=== PATIENT | female | born 1940 | race Caucasian/White ===

== ENCOUNTER → 2016-04-26 10:11 | Outpatient (CLI) | payer MEDICARE ==
[2015-07-12 13:38] VITALS: BMI 24.5
[~2016-04-26 10:11] MED LIST: HYDROCODON-ACE1 EAC7 PO; LEVOXYL100 MCG PO; LIPITOR80 MG PO; METFORMIN HCL500 M1 PO; MULTIPLE VITAMI1 TA1 PO; NEURONTIN 300300 MG PO; PAXIL40 MG PO; ROBAXIN500 MG PO; VITAMIN B-121000 MCG PO; VITAMIN D5000 UNIT PO
== END | disposition home or self-care (01) ==
LOC: D.CT 09:30
DX: I65.23 Occlusion and stenosis of bilateral carotid arteries (principal)

== ENCOUNTER 2016-06-22 10:36 | Outpatient (CLI) | payer MEDICARE ==
[~2016-06-22] VITALS: Ht 167.6 cm; Wt 63.6 kg
--- NOTE | ~2016-06-22 | HEMODYNAMI ---
PATIENT:OVIDIO FU MEDICAL RECORD: [id number] : 38 LOCATION:[facility] ADMISSION DATE: 06/22/16 Generatedon:06/22/201615:06 Patient name: OVIDIO FU Patient #: [id number] SSN: DO B: 1940 Date of study: 06/22/2016 Page: Of Hemodynamic Procedure Report Patient Data Patient Demographics Procedure consent was obtained First Name: OVIDIO Gender: Female Last Name: NICKIE : 1940 [facility] Initial: CHRIS Age: 75 year(s) Patient #: [id number] Race: Unknown Additional ID: [id number] Contact details [address]: [address] [place] [address] DRIVE State: [place] City: [place] Zip code: [address] Past Medical History Allergies Allergen Reaction Date Comments Reported Codeine 07/12/2015 Admission Admission Data Admission Date: 06/22/2016 Admission Time: 10:36 Procedure Procedure Types Cath Procedure Peripheral Cath Diagnostic Procedure Miscellaneous Procedure Description Procedure Date Procedure Date: 06/22/2016 Procedure Start Time: 13:51 Procedure Staff Name Function Troy Gomez MD Performing Physician Aman Humphries RT Scrub Shelbie Ward RN Nurse Aman Humphries RT Monitor Procedure Data Cath Procedure Fluoroscopy Diagnostic fluoroscopy Total fluoroscopy Time: 8.3 time: 8.3 min min Diagnostic fluoroscopy Total fluoroscopy dose: 412 dose: 412 mGy mGy Contrast Material Contrast Material Type Amount (ml) Isovue 300 62 Entry Location Entry Primary Successful Side Size Upsize Upsize Entry Closure Succ essful Closure Location (Fr) 1 (Fr) 2 (Fr) Remarks Device Remarks Femoral Right 5 Fr 6 Fr Angio-VIP artery Long 6Fr Diagnostic catheters Device Type Used For End Catheter Placement Merit Impress Parikh 5Fr 125CM catheter Merit ULTRA BOLUS FLUSH Aortic Root 5Fr 90CM catheter Angiography Procedure Medications Medication Administration Route Dosage Versed I.V. 0.5 mg Versed I.V. 0.5 mg Fentanyl I.V. 25 mcg Versed I.V. 0.5 mg Fentanyl I.V. 25 mcg Heparin Bolus I.V. 5000 units Versed I.V. 0.5 mg Fentanyl I.V. 25 mcg Versed I.V. 0.5 mg Fentanyl I.V. 25 mcg Fentanyl I.V. 25 mcg Hemodynamics Rest Heart Rate: 58 (bpm) Snapshots Pre Cath Intra NCS Post Cath Vital Signs Time Heart Resp SPO2 NIBP (mmHg) Rhythm Pain Sedation Rate (ipm) (%) Status Level (bpm) 13:43:59 62 28 98 130/63(92) NSR 0 (11) 10(A) , No pain 13:48:15 61 13 98 125/58(85) NSR 0 (11) 10(A) , No pain 13:52:29 59 16 100 136/61(107) NSR 0 (11) 10(A) , No pain 13:56:49 61 14 100 130/56(90) NSR 0 (11) 10(A) , No pain 14:01:06 60 14 100 132/55(93) NSR 0 (11) 10(A) , No pain 14:05:24 61 11 99 120/54(93) NSR 0 (11) 10(A) , No pain 14:09:28 62 21 98 118/61(97) NSR 0 (11) 10(A) , No pain 14:13:39 66 12 100 128/57(95) NSR 0 (11) 10(A) , No pain 14:17:57 66 14 100 114/47(77) NSR 0 (11) 10(A) , No pain 14:22:09 69 16 100 115/51(74) NSR 0 (11) 10(A) , No pain 14:26:21 67 12 100 118/50(74) NSR 0 (11) 10(A) , No pain 14:30:33 68 15 100 109/52(79) NSR 0 (11) 10(A) , No pain 14:34:43 69 12 100 118/50(79) NSR 0 (11) 10(A) , No pain 14:38:57 71 14 100 106/49(76) NSR 0 (11) 10(A) , No pain 14:43:09 68 13 100 119/45(76) NSR 0 (11) 10(A) , No pain 14:47:23 68 15 100 120/54(101) NSR 0 (11) 10(A) , No pain 14:51:35 77 13 100 113/59(83) NSR 0 (11) 10(A) , No pain Medications Time Medication Route Dose Verified Delivered Reason Notes Effe ctiveness by by 13:51:10 Fentanyl I.V. 25 Shelbie Shelbie for sedation mcg King SHIELA Ward RN 13:51:16 Versed I.V. 0.5 Shelbie Shelbie for sedation mg King SHIELA Ward RN 14:02:05 Versed I.V. 0.5 Shelbie Shelbie for sedation mg King SHIELA Ward RN 14:02:11 Fentanyl I.V. 25 Shelbie Shelbie for sedation mcg King SHIELA Ward RN 14:14:31 Versed I.V. 0.5 Shelbie Shelbie for sedation mg King SHIELA Ward RN 14:14:40 Fentanyl I.V. 25 Shelbie Shelbie for sedation mcg King SHIELA Ward RN 14:15:19 Heparin I.V. 5000 Shelbie Shelbie for Bolus units King SHIELA Ward RN anticoagulation 14:24:54 Versed I.V. 0.5 Shelbie Shelbie for sedation mg King SHIELA Ward RN 14:25:01 Fentanyl I.V. 25 Shelbie Shelbie for sedation mcg King SHIELA Ward RN 14:47:50 Versed I.V. 0.5 Shelbie Shelbie for sedation mg King SHIELA Ward RN 14:47:57 Fentanyl I.V. 25 Shelbie Shelbie for sedation mcg King SHIELA Ward RN Procedure Log Time Note 13:23:56 Aman Humphries RT (R) (CV) sent for patient. Start room use. 13:24:09 Time tracking: Regular hours 13:24:14 Plan of Care:Hemodynamics will remain stable., Cardiac rhythm will remain stable., Comfort level will be maintained., Respiratory function will remain adequate., Patient/ family verbilizes understanding of procedure., Procedure tolerated without complication., Recovers from procedure without complications.. 13:24:19 Patient received from Outpatients to IR Alert and oriented. Tansferred to table in Supine position. 13:24:20 Correct patient and procedure confirmed by team. 13:24:23 Signed procedure consent form obtained from patient. 13:24:24 ECG and BP/O2 sat monitors applied to patient. 13:24:25 Full Disclosure recording started :: - 13:24:30 H&P Date Dictated: 06/22/2016 H&P Addendum completed by physician on day of procedure. (MUST COMPLETE FOR ALL OUTPATIENTS). ::30 Pre-procedure instructions explained to patient. 13:24:31 Pre-op teaching completed and patient verbalized understanding. 13::32 Family in waiting room. 13::34 Patient NPO since Midnight. 13::37 Is the patient allergic to Iodine/contrast media? No. 13:24:39 Was the patient premedicated? No 13::44 Is patient on blood thinner?No 13:24:45 Patient diabetic? No. 13:24:47 - 13:24:49 ----Pre-sedation anethsthesia assessment.---- 13:24:52 Snore? Yes 13:24:53 Sleep apnea? No 13::55 Deviated septum? No :24:55 Opens mouth fully? Yes 13:24:57 Sticks out tongue? Yes 13:25:00 Airway obstruction? No ? 13:25:05 Dentures? No ? 13:28:32 Pre procedure: right dorsailis pedis pulse 2+ Normal; easily identifiable; not easily obliterated 13::37 Pre procedure: left dorsailis pedis pulse 2+ Normal; easily identifiable; not easily obliterated 13:28:41 Pre procedure: right posterior tibial pulse Doppler 13::44 Pre procedure: left posterior tibial pulse Doppler 13:28:53 Patient pain scale 0/10 no pain. 13:29:00 IV patent on arrival in right hand with 0.9% NaCl at [facility]. 13:29:02 Alarms reviewed by R. N. 13::03 Alarms reviewed by R. N. 13:: Sharps counted by scrub and verified by R.N. 13:29:07 Right groin area was prepped with chlora-prep and draped in sterile fashion 13:29:20 Use device set IR Diagnostic 13::27 Sterile Angiographic Pack opened to sterile field. 13:: Bag Decanter opened to sterile field. 13:: Acist Manifold opened to sterile field. 13:: Acist Hand Control opened to sterile field. 13:29:30 Acist Syringe opened to sterile field. 13:41:40 Vital chart was started 13:41:42 Baseline sample Acquired. 13:41:46 Rhythm: sinus bradycardia 13:50:22 Physician arrived 13:50:23 --------ALL STOP TIME OUT------ 13:50:24 Final Timeout: patient, procedure, and site verified with staff and physician. All members of the team are in agreement. 13:50:26 Right groin site verified by team. 13:50:31 Physical assessment completed. ASA score P 3 - A patient with severe systemic disease as per Troy Gomez MD. 13:50:35 Sedation plan: IV Moderate Sedation Versed, Fentanyl 13:50:57 Procedure started. 13:51:02 Local anesthetic to right femoral artery with Lidocaine 1% by Troy Gomez MD.INITIAL ACCESS ONLY 13:51:10 Fentanyl 25 mcg I.V. was given by Shelbie Ward RN; for sedation; 13:51:16 Versed 0.5 mg I.V. was given by Shelbie Ward RN; for sedation; 13:51:25 Yousuf DOC .035 guide wire opened to sterile field. 13:51:25 Cook GOLDSTEIN 260 guide wire opened to sterile field. 13:51:26 Micropuncture VSI 4FR kit opened to sterile field. 13:51:26 [facility] 5FR Sheath opened to sterile field. 13:51:27 TUBING, CONTRAST INJCTN HI PRES opened to sterile field. 13:51:27 BasixTOUCH Inflation Syringe opened to sterile field. 13:51:28 Copilot Bleedback Control Valve opened to sterile field. 13:53:53 A Merit Impress Parikh 5Fr 125CM catheter was advanced over the wire and used for . 13:54:25 A Merit ULTRA BOLUS FLUSH 5Fr 90CM catheter was advanced over the wire and used for Aortic Root Angiography. 13:54:33 Cook RAABE 6FR. 90cm guide sheath opened to sterile field. 13:54:47 A 5 Fr sheath was inserted into the Right Femoral artery 14:02:05 Versed 0.5 mg I.V. was given by Shelbie Ward RN; for sedation; 14:02:11 Fentanyl 25 mcg I.V. was given by Shelbie Ward RN; for sedation; 14:10:03 Sheath upsized to a 6 Fr Long. 14:10:29 22g iv moved to L AC d/t infiltration in R AC 14:12:07 Terumo ANGLE 180L glide wire opened to sterile field. 14:12:20 Terumo TORQUE DEVICE PLASTIC .038 opened to sterile field. 14:14:31 Versed 0.5 mg I.V. was given by Shelbie Ward RN; for sedation; 14:14:40 Fentanyl 25 mcg I.V. was given by Shelbie Ward RN; for sedation; 14:15:19 Heparin Bolus 5000 units I.V. was given by Shelbie Ward RN; for anticoagulation; 14:24:54 Versed 0.5 mg I.V. was given by Shelbie Ward RN; for sedation; 14:25:01 Fentanyl 25 mcg I.V. was given by Shelbie Ward RN; for sedation; 14:35:08 8 X 37 VISIPRO STENT DEPLOYED LOT#[id number] 14:43:36 ANGIOSEAL-VIP PLUS 6 FR opened to sterile field. 14:43:51 Sheath removed intact; hemostasis achieved with Angio-VIP 6Fr to the Right Femoral artery. 14:46:05 Procedure ended.(Physican Out) 14:47:50 Versed 0.5 mg I.V. was given by Shelbie Ward RN; for sedation; 14:47:55 Fluoroscopy time 08.30 minutes. 14:47:57 Fentanyl 25 mcg I.V. was given by Shelbie Ward RN; for sedation; 14:49:17 Fluoroscopy dose: 412 mGy 14:49:17 Flurop Dose total: 412 14:49:26 Contrast amount:Isovue 300 62ml. 14:49:28 Sharps counted by scrub and verified by R.N. 14:49:30 Insertion/operative site no bleeding no hematoma. 14:49:34 Post-op/insertion site Right Femoral artery dressed using a 4 x 4 and Tegaderm. 14:49:45 Post right femoral artery:stable 14:49:47 Post Procedure Pulses reassessed and unchanged 14:49:52 Post-procedure physical assessment completed. ASA score P 3 - A patient with severe systemic disease as per Troy Gomez MD. 14:49:54 Post procedure rhythm: unchanged. 14:49:56 Procedure and supply charges have been captured, reviewed, submitted an d are correct. 15:06:02 Report given to Outpatients. 15:06:17 Patient transfered to Outpatients with Bed. 15:06:40 Vital chart was stopped Device Usage Item Name Manufacture Quantity Catalog Number Hospital Part Current Min imal Lot# / Charge Number Stock Stock Serial# Code Sterile Cardinal 1 [id number] 5 Angiographic Health Pack Bag Decanter Microtek 1 2001S [id number] 26383 759393 5 Medical Inc. Acist Acist 1 27872 768085 184089 448966 5 Manifold Medical Systems Inc Acist Hand Acist 1 05270 825938 621767 750288 5 Control Medical Systems Inc Acist Syringe Acist 1 62974 944278 731901 657344 20 Medical Systems Inc Cook DOC .035 Cook Medical 1 L02778 615427 503008 5 [id number] guide wire Yousuf GOLDSTEIN Cook Medical 1 [id number] 184787 212187 5 [id number] 260 guide wire Micropuncture VSI VASCULAR 1 7266V 061385 201842 [address] [facility] [address] [facility] 1 999555 717573 867623 5 [id number] Sheath TUBING, Merit 1 [id number] 025411 098875 770828 5 CONTRAST Medical INJCTN HI PRES BasixTOUCH Merit 1 XQ3932 578135 479611 292949 5 Inflation Medical Syringe Copilot [place] 1 2872405 217448 786586 048004 5 Bleedback Vascular Control Valve Merit Impress Merit 1 [id number] 377764 135917 819674 5 Parikh 5Fr Medical 125CM catheter Merit ULTRA Merit 1 [id number] 416919 779068 5 BOLUS FLUSH Medical 5Fr 90CM catheter Cook RAABE Cook Medical 1 C32564 543832 765429 5 [id number] 6FR. 90cm guide sheath Terumo ANGLE Terumo 1 UG6186 104548 226327 576250 5 180L glide wire Terumo TORQUE [place] 1 TD01 551189 621605 593724 5 DEVICE Scientific PLASTIC .[address]-[facility] [facility] 1 005492 680304 177020 5 [id number] PLUS 6 FR Signature Audit [place] Stage Time Signature Unsigned Intra-Procedure 06/22/2016 Aman 3:06:37 PM [place] RT (R) (CV) Signatures Monitor : Aman Signature : [place] RT Date : Time : [id number] [place] [address]
[~2016-06-22 10:36] MED LIST changes: -MULTIPLE VITAMI1 TA1 PO; -VITAMIN B-121000 MCG PO; -VITAMIN D5000 UNIT PO
[2016-06-22] MEDS ORDERED: VITAMIN D5000 UNIT PO (11:26)
[2016-06-22] MEDS ORDERED: VITAMIN B-121000 MCG PO (11:26)
[2016-06-22] MEDS ORDERED: MULTIPLE VITAMI1 TA1 PO (11:26)
[2016-06-22 11:33] VITALS: BP 129/54; Ht 167.6 cm; Wt 63.6 kg
[2016-06-22 11:35] LABS: EOSINOPHILS 3.4 % (0-7); HEMATOCRIT 37.6 % (36.0-48.0); HEMOGLOBIN 11.5 g/dL (12-16); LYMPHOCYTES 16.3 % (15-50); MCH 24.6 pg (26.0-34.0); MCHC 30.6 g/dL (31.0-37.0); MCV 80.3 fL (80.0-100.0); MEAN PLATELET VOLUME 11.4 fL (7.4-10.4); MONOCYTES 5.6 % (2-11); NEUTROPHILS 73.7 % (40-80); PLATELET COUNT 749 10x3/uL (130-400); RBC 4.68 10x6/uL (4.00-5.40); RDW 15.8 % (11.5-14.5); WBC 8.3 10x3/uL (4.8-10.8)
[2016-06-22 11:41] LABS: APTT 33.2 SECONDS (22.8-39.4); INR 1.08 (0.85-1.17); PROTIME 13.9 SECONDS (11.6-15.0)
[2016-06-22 11:51] LABS: CALC OSMOLALITY 279 mosm/kg (275-300); CALCIUM 9.1 mg/dL (8.5-10.1); CARBON DIOXIDE 30.5 mmol/L (21.0-32.0); CHLORIDE - SERUM 104 mmol/L (98-107); CREATININE - SERUM 0.5 mg/dL (0.6-1.3); GLUCOSE 91 mg/dL (74-106); POTASSIUM - SERUM 3.4 mmol/L (3.5-5.1); SODIUM 141 mmol/L (136-145); UREA NITROGEN 10 mg/dL (7-18); eGFR NON AFRICAN AMERICAN > 90 mL/min (90-120)
--- NOTE | 2016-06-22 18:27 | NUR ---
VS TAKEN AND PLACE ON POST-OP SHEET AND PLACE IN CHART
--- NOTE | 2016-06-22 18:46 | NUR ---
IV DC WITH CATHER TIP INTACT, UP TO BATHROOM VOIDED
== END 2016-06-22 19:00 | disposition home or self-care (01) ==
LOC: D.OPS 10:36 → D.CVICU 13:00 → D.OPS 13:00 → D.RAD 13:00 → D.OPS 19:00 → D.CVICU 19:00
PROVIDERS: Radiology Vascular & Interventional Radiology
DX: I65.21 Occlusion and stenosis of right carotid artery (principal); I77.1 Stricture of artery

== ENCOUNTER → 2016-07-11 21:49 | Outpatient (CLI) | payer MEDICARE ==
[2016-06-22 11:33] VITALS: BMI 22.6
[~2016-07-11 21:49] MED LIST changes: +MULTIPLE VITAMI1 TA1 PO; +VITAMIN B-121000 MCG PO; +VITAMIN D5000 UNIT PO
[2016-07-12 01:07] LABS: CALC OSMOLALITY 276 mosm/kg (275-300); CALCIUM 8.9 mg/dL (8.5-10.1); CHLORIDE - SERUM 104 mmol/L (98-107); CREATININE - SERUM 0.6 mg/dL (0.6-1.3); GLUCOSE 85 mg/dL (74-106); POTASSIUM - SERUM 4.5 mmol/L (3.5-5.1); SODIUM 140 mmol/L (136-145); UREA NITROGEN 11 mg/dL (7-18); eGFR NON AFRICAN AMERICAN > 90 mL/min (90-120)
== END | disposition home or self-care (01) ==
LOC: D.LABREF 21:49
PROVIDERS: Family Medicine
DX: E87.6 Hypokalemia (principal)

== ENCOUNTER → 2016-12-12 16:43 | Outpatient (CLI) | payer MEDICARE ==
[2016-06-22 11:33] VITALS: BMI 22.6
== END | disposition home or self-care (01) ==
LOC: D.MAMMO 10:45
DX: Z12.31 Encounter for screening mammogram for malignant neoplasm of breast (principal)

== ENCOUNTER → 2017-01-04 15:25 | Outpatient (CLI) | payer MEDICARE ==
[2016-06-22 11:33] VITALS: BMI 22.6
== END | disposition home or self-care (01) ==
LOC: D.CT 15:25
DX: R10.9 Unspecified abdominal pain (principal)

== ENCOUNTER → 2017-01-18 17:22 | Outpatient (CLI) | payer MEDICARE ==
[2016-06-22 11:33] VITALS: BMI 22.6
== END | disposition home or self-care (01) ==
LOC: D.MAMMO 14:30
DX: R92.8 Other abnormal and inconclusive findings on diagnostic imaging of breast (principal)

== ENCOUNTER 2017-03-24 11:22 | Emergency (ER) | payer MEDICARE ==
[2016-06-22 11:33] VITALS: BMI 22.6
== END 2017-03-24 13:05 | disposition home or self-care (01) ==
LOC: D.ER 11:22
DX: M94.0 Chondrocostal junction syndrome [Tietze] (principal); Z85.3 Personal history of malignant neoplasm of breast; Z85.850 Personal history of malignant neoplasm of thyroid

== ENCOUNTER 2017-05-23 12:33 | Emergency (ER) | payer MEDICARE ==
[2016-06-22 11:33] VITALS: BMI 22.6
[2017-05-23 13:04] LABS: BASOPHILS 0.9 % (0-2); HEMOGLOBIN 13.2 g/dL (12-16); IMMATURE GRANULOCYTES 0.3 % (0-5); LYMPHOCYTES 20.5 % (15-50); MCH 24.6 pg (26.0-34.0); MCHC 30.7 g/dL (31.0-37.0); MCV 80.2 fL (80.0-100.0); MEAN PLATELET VOLUME 10.9 fL (7.4-10.4); MONOCYTES 5.3 % (2-11); RBC 5.36 10x6/uL (4.00-5.40); RDW 16.9 % (11.5-14.5); WBC 9.6 10x3/uL (4.8-10.8)
[2017-05-23 13:06] LABS: PLATELET COUNT 930 10x3/uL (130-400)
[2017-05-23 13:51] LABS: ALBUMIN 3.7 g/dL (3.4-5.0); ALKALINE PHOSPHATASE 121 U/L (46-116); ALT (SGPT) 17 U/L (10-68); CALC OSMOLALITY 284 mosm/kg (275-300); CALCIUM 8.7 mg/dL (8.5-10.1); CARBON DIOXIDE 25.1 mmol/L (21.0-32.0); CHLORIDE - SERUM 107 mmol/L (98-107); CREATININE - SERUM 0.7 mg/dL (0.6-1.3); GLUCOSE 87 mg/dL (74-106); POTASSIUM - SERUM 3.4 mmol/L (3.5-5.1); SODIUM 144 mmol/L (136-145); THYROID STIMULATING HORMONE 5.66 uIU/mL (0.36-3.74); UREA NITROGEN 11 mg/dL (7-18); eGFR NON AFRICAN AMERICAN 86 mL/min (90-120)
== END 2017-05-23 14:36 | disposition home or self-care (01) ==
LOC: D.ER 12:33
PROVIDERS: Emergency Medicine
DX: I48.91 Unspecified atrial fibrillation (principal)

== ENCOUNTER 2017-06-22 10:04 | Emergency (ER) | payer MEDICARE ==
[2016-06-22 11:33] VITALS: BMI 22.6
[2017-06-22 11:40] LABS: BASOPHILS 0.4 % (0-2); EOSINOPHILS 2.6 % (0-7); HEMATOCRIT 37.1 % (36.0-48.0); HEMOGLOBIN 11.4 g/dL (12-16); IMMATURE GRANULOCYTES 0.4 % (0-5); LYMPHOCYTES 9.4 % (15-50); MCH 24.7 pg (26.0-34.0); MCHC 30.7 g/dL (31.0-37.0); MCV 80.5 fL (80.0-100.0); MONOCYTES 4.7 % (2-11); NEUTROPHILS 82.5 % (40-80); PLATELET COUNT 754 10x3/uL (130-400); RBC 4.61 10x6/uL (4.00-5.40); RDW 17.4 % (11.5-14.5)
[2017-06-22 11:58] LABS: ALBUMIN 3.2 g/dL (3.4-5.0); ALKALINE PHOSPHATASE 106 U/L (46-116); ALT (SGPT) 27 U/L (10-68); BILIRUBIN - TOTAL 0.82 mg/dL (0.2-1.3); CALC OSMOLALITY 275 mosm/kg (275-300); CALCIUM 8.3 mg/dL (8.5-10.1); CARBON DIOXIDE 26.5 mmol/L (21.0-32.0); CHLORIDE - SERUM 106 mmol/L (98-107); CREATININE - SERUM 0.6 mg/dL (0.6-1.3); GLUCOSE 82 mg/dL (74-106); POTASSIUM - SERUM 3.9 mmol/L (3.5-5.1); PROTEIN - SERUM 6.3 g/dL (6.4-8.2); SODIUM 139 mmol/L (136-145); UREA NITROGEN 10 mg/dL (7-18); eGFR NON AFRICAN AMERICAN > 90 mL/min (90-120)
[2017-06-22 12:17] LABS: APTT 27.9 SECONDS (22.8-39.4)
[2017-06-22 12:18] LABS: INR 1.06 (0.85-1.17); PROTIME 13.4 SECONDS (11.6-15.0)
== END 2017-06-22 12:55 | disposition home or self-care (01) ==
LOC: D.ER 10:04
PROVIDERS: Nurse Practitioner Family
DX: S16.1XXA Strain of muscle, fascia and tendon at neck level, initial encounter (principal); V43.52XA Car driver injured in collision with other type car in traffic accident, initial encounter; Y93.89 Activity, other specified; Y92.410 Unspecified street and highway as the place of occurrence of the external cause; Y99.8 Other external cause status; S39.012A Strain of muscle, fascia and tendon of lower back, initial encounter

== ENCOUNTER 2017-11-21 13:56 | Emergency (ER) | payer MEDICARE ==
[~2017-11-21] VITALS: Ht 167.6 cm; Wt 63.6 kg
[2017-11-21 14:09] VITALS: Ht 167.6 cm; Wt 63.6 kg
[2017-11-21] MEDS ORDERED: AUGMENTIN 875-11 TAB PO (15:35)
[2017-11-21 16:20] VITALS: BP 98/50
== END 2017-11-21 16:00 | disposition home or self-care (01) ==
LOC: D.ER 13:56
DX: S51.812A Laceration without foreign body of left forearm, initial encounter (principal); W55.01XA Bitten by cat, initial encounter; Y93.89 Activity, other specified; Y92.019 Unspecified place in single-family (private) house as the place of occurrence of the external cause; S50.812A Abrasion of left forearm, initial encounter; E11.9 Type 2 diabetes mellitus without complications; Z85.850 Personal history of malignant neoplasm of thyroid; Z85.3 Personal history of malignant neoplasm of breast

== ENCOUNTER → 2018-01-22 17:08 | Outpatient (CLI) | payer MEDICARE ==
[2017-11-21 14:09] VITALS: BMI 22.6
[~2018-01-22 17:08] MED LIST changes: +AUGMENTIN 875-11 TAB PO
== END | disposition home or self-care (01) ==
LOC: D.MAMMO 15:45
DX: Z12.31 Encounter for screening mammogram for malignant neoplasm of breast (principal)

== ENCOUNTER → 2018-03-06 17:44 | Outpatient (CLI) | payer MEDICARE ==
[2017-11-21 14:09] VITALS: BMI 22.6
== END | disposition home or self-care (01) ==
LOC: D.MAMMO 14:00
DX: R92.8 Other abnormal and inconclusive findings on diagnostic imaging of breast (principal)

== ENCOUNTER 2018-07-23 10:53 | Emergency (ER) | payer OTHER ==
[~2018-07-23] VITALS: Ht 167.6 cm; Wt 72.3 kg
[2018-07-23 10:56] VITALS: Ht 167.6 cm; Wt 72.3 kg
[2018-07-23] MEDS ORDERED: PLAVIX75 MG PO (11:06)
[2018-07-23] MEDS ORDERED: HYDROCODON-ACE1 EAC7 PO (12:48)
[2018-07-23 13:15] VITALS: BP 141/58
== END 2018-07-23 13:15 | disposition home or self-care (01) ==
LOC: D.ER 10:53
DX: M54.5 Low back pain (principal)